=== PATIENT | female | born 2000 | race Two or more races ===

== ENCOUNTER 2024-01-01 05:15 | Day surgery (SDC) | payer OTHER ==
[~2024-01-01 05:15] MED LIST: VIENVA-28 TABL1 EACH PO; ZOLOFT50 MG PO
[2024-01-01] MEDS ORDERED: POVIDONE-IODINE 118 ML BOTT TOP ONE (09:30)
[2024-01-01] MEDS ORDERED: CEFAZOLIN SODIUM 1,000 MG VIAL IJ ONE (09:30)
[2024-01-01] MEDS ORDERED: CEFAZOLIN SODIUM 1,000 MG VIAL IV ONE ×2 (09:30→12:15)
[2024-01-01] MEDS ORDERED: CHLORHEXIDINE GLUCONATE 120 ML BOTTLE TOP ONE (09:30)
[2024-01-01] MEDS ORDERED: SUGAMMADEX SODIUM 200 MG/2 ML VIAL IV ONE (13:30)
[2024-01-01] MEDS ORDERED: NEOMYCIN/BACITRACIN/POLYMYXINB 14 G TUBE TOP ONE (14:00)
== END 2024-01-01 17:30 | disposition home or self-care (01) ==
LOC: CIR.AMB 05:15
PROVIDERS: ATTEND Plastic Surgery Surgery of the Hand
DX: N62 Hypertrophy of breast (principal); F41.8 Other specified anxiety disorders